=== PATIENT | male | born 1980 | race Caucasian/White ===

== ENCOUNTER → 2019-07-05 | Outpatient (REF) | payer OTHER | LOC: M LAB REF 13:09 | PROVIDERS: ATTEND Physician Assistant | DX: J02.9 Acute pharyngitis, unspecified (principal) ==

== ENCOUNTER → 2019-09-26 | Outpatient (CLI) | payer OTHER ==
[2019-09-26 17:54] LABS: BASO % 0.7 % (0.0-1.0); EOS # 0.2 10^3/uL (0.0-0.5); EOS % 3.2 % (0.0-3.0); HEMATOCRIT 45.5 % (42.0-52.0); HEMOGLOBIN 15.1 g/dl (13.5-17.5); LYMPH % 35.3 % (24.0-44.0); MEAN CORPUSCULAR HEMOGLOBIN 29.4 pg (27.0-33.0); MEAN CORPUSCULAR HGB CONC 33.2 g/dl (32.0-36.5); MEAN CORPUSCULAR VOLUME 88.5 fl (80.0-96.0); MONO # 0.4 10^3/uL (0.0-0.8); MONO % 7.4 % (0.0-5.0); NEUTROPHILS % 53.2 % (36.0-66.0); PLATELET COUNT, AUTOMATED 289 10^3/uL (150-450); RED BLOOD COUNT 5.14 10^6/uL (4.30-6.10); WHITE BLOOD COUNT 5.6 10^3/uL (4.0-10.0)
[2019-09-26 18:36] LABS: ALBUMIN 4.1 GM/DL (3.2-5.2); ALT/SGPT 37 U/L (12-78); BILIRUBIN,TOTAL 0.6 MG/DL (0.2-1.0); BLOOD UREA NITROGEN 17 MG/DL (7-18); CALCIUM LEVEL 8.8 MG/DL (8.5-10.1); CARBON DIOXIDE LEVEL 31 MEQ/L (21-32); CHLORIDE LEVEL 108 MEQ/L (98-107); CHOLESTEROL LEVEL 157 MG/DL (<200); CHOLESTEROL RISK RATIO 3.204 (<5); CREATININE FOR GFR 1.11 MG/DL (0.70-1.30); GLOMERULAR FILTRATION RATE > 60.0 (>60); GLUCOSE, FASTING 97 MG/DL (70-100); HDL CHOLESTEROL 49 MG/DL (>40); LDL CHOLESTEROL 100 MG/DL (<100); NON-HDL-C 108 MG/DL; POTASSIUM SERUM 4.5 MEQ/L (3.5-5.1); SODIUM LEVEL 142 MEQ/L (136-145); TOTAL PROTEIN 7.1 GM/DL (6.4-8.2); TRIGLYCERIDES LEVEL 38 MG/DL (<150)
== END ==
LOC: M LRY 11:59
PROVIDERS: ATTEND Family Medicine
DX: Z00.00 Encounter for general adult medical examination without abnormal findings (principal)

== ENCOUNTER 2023-08-18 16:10 | Inpatient (IN) | payer OTHER ==
[~2023-08-18] VITALS: Ht 180.3 cm; Wt 96.0 kg
[2023-08-18] MEDS ORDERED: ONDANSETRON 4MG 2ML VIAL IV ONE (16:25)
[2023-08-18] MEDS: MORPHINE 4 MG/ML 1ML VIAL IV PRN ×4 (16:32→23:18)
[2023-08-18 16:57] LABS: BASO % 0.3 % (0.0-1.0); EOS # 0.2 10^3/uL (0.0-0.5); EOS % 2.1 % (0.0-3.0); HEMATOCRIT 40.7 % (42.0-52.0); HEMOGLOBIN 13.3 g/dl (13.5-17.5); LYMPH # 2.5 10^3/uL (1.5-5.0); LYMPH % 26.1 % (24.0-44.0); MEAN CORPUSCULAR HEMOGLOBIN 28.9 pg (27.0-33.0); MEAN CORPUSCULAR HGB CONC 32.7 g/dl (32.0-36.5); MEAN CORPUSCULAR VOLUME 88.3 fl (80.0-96.0); MONO # 0.6 10^3/uL (0.0-0.8); MONO % 6.4 % (2.0-8.0); NEUTROPHILS # 6.2 10^3/uL (1.5-8.5); NEUTROPHILS % 64.6 % (36.0-66.0); PLATELET COUNT, AUTOMATED 310 10^3/uL (150-450); RED BLOOD COUNT 4.61 10^6/uL (4.30-6.10); WHITE BLOOD COUNT 9.6 10^3/uL (4.0-10.0)
[2023-08-18] MEDS ORDERED: MED REC IN PROGRESS XX SCH (18:05)
[2023-08-18] MEDS ORDERED: HOME MED LIST COMPLETE! XX SCH (18:10)
[2023-08-18] MEDS: KETOROLAC 30 MG/ML 1ML VIAL IV SCH (19:28)
[2023-08-18] MEDS: PERCOCET 5MG/325MG TAB PO PRN (19:28)
[2023-08-18] MEDS: DOCUSATE SODIUM 100MG CAPSULE PO SCH (21:00)
[2023-08-18 22:21] LABS: BASO % 0.2 % (0.0-1.0); EOS % 0.1 % (0.0-3.0); HEMATOCRIT 36.2 % (42.0-52.0); HEMOGLOBIN 12.4 g/dl (13.5-17.5); MEAN CORPUSCULAR HEMOGLOBIN 29.7 pg (27.0-33.0); MEAN CORPUSCULAR HGB CONC 34.3 g/dl (32.0-36.5); MEAN CORPUSCULAR VOLUME 86.6 fl (80.0-96.0); MONO # 1.1 10^3/uL (0.0-0.8); MONO % 7.5 % (2.0-8.0); NEUTROPHILS # 12.4 10^3/uL (1.5-8.5); NEUTROPHILS % 84.9 % (36.0-66.0); PLATELET COUNT, AUTOMATED 286 10^3/uL (150-450); RED BLOOD COUNT 4.18 10^6/uL (4.30-6.10); WHITE BLOOD COUNT 14.6 10^3/uL (4.0-10.0)
[2023-08-18 22:38] LABS: INR 1.2; PROTHROMBIN TIME 14.8 SECONDS (12.5-14.5)
[2023-08-18 22:39] LABS: PARTIAL THROMBOPLASTIN TIME 24.9 SECONDS (24.8-34.2)
[2023-08-18 22:47] LABS: ALBUMIN 3.7 G/DL (3.2-5.2); ALKALINE PHOSPHATASE 37 U/L (46-116); ALT/SGPT 22 U/L (7.0-40); AST/SGOT 22 U/L (<34); BILIRUBIN,TOTAL 0.8 MG/DL (0.3-1.2); BLOOD UREA NITROGEN 20 MG/DL (9-23); CALCIUM LEVEL 8.6 MG/DL (8.5-10.1); CARBON DIOXIDE LEVEL 29 MMOL/L (20-31); CHLORIDE LEVEL 103 MMOL/L (98-107); GLOMERULAR FILTRATION RATE > 60.0 (>60); GLUCOSE, FASTING 137 MG/DL (60-100); POTASSIUM SERUM 4.2 MMOL/L (3.5-5.1); SODIUM LEVEL 139 MMOL/L (136-145); TOTAL PROTEIN 6.1 G/DL (5.7-8.2)
[2023-08-18] MEDS: PANTOPRAZOLE 40MG TAB (PROTONIX) PO SCH (23:17)
[2023-08-19] VITALS (8 sets, daily range): BP systolic 101–131; BP diastolic 61–80; TEMP 98.1–98.6; O2SAT 79–98
[2023-08-19] MEDS: ONDANSETRON 4MG 2ML VIAL IV PRN ×3 (00:14→19:55)
[2023-08-19] MEDS: KETOROLAC 30 MG/ML 1ML VIAL IV SCH ×4 (01:00→19:55)
[2023-08-19] MEDS: MORPHINE 4 MG/ML 1ML VIAL IV PRN ×3 (04:43→12:05)
[2023-08-19] MEDS: D5W/0.9% SODIUM CHLORIDE 1,000 ML IV SCH ×3 (04:43→19:06)
[2023-08-19 06:17] LABS: HEMATOCRIT 36.1 % (42.0-52.0); MEAN CORPUSCULAR HEMOGLOBIN 29.3 pg (27.0-33.0); MEAN CORPUSCULAR HGB CONC 33.2 g/dl (32.0-36.5); PLATELET COUNT, AUTOMATED 270 10^3/uL (150-450); WHITE BLOOD COUNT 9.9 10^3/uL (4.0-10.0)
[2023-08-19 06:40] LABS: BLOOD UREA NITROGEN 22 MG/DL (9-23); CALCIUM LEVEL 8.6 MG/DL (8.5-10.1); CARBON DIOXIDE LEVEL 27 MMOL/L (20-31); CHLORIDE LEVEL 104 MMOL/L (98-107); CREATININE FOR GFR 1.11 MG/DL (0.70-1.30); GLOMERULAR FILTRATION RATE > 60.0 (>60); GLUCOSE, FASTING 117 MG/DL (60-100); POTASSIUM SERUM 4.4 MMOL/L (3.5-5.1); SODIUM LEVEL 139 MMOL/L (136-145)
[2023-08-19] MEDS: DOCUSATE SODIUM 100MG CAPSULE PO SCH ×2 (08:10→19:54)
[2023-08-19] MEDS ORDERED: ONDANSETRON 4MG 2ML VIAL As Ordered ONE ×2 (13:06→14:35)
[2023-08-19] MEDS ORDERED: ROCURONIUM BROMIDE 50MG/5ML VIAL As Ordered ONE ×2 (13:07→15:17)
[2023-08-19] MEDS ORDERED: LIDOCAINE 2% 100MG/5ML SDV (FOR ANES.) As Ordered ONE ×2 (13:07→14:33)
[2023-08-19] MEDS ORDERED: propofoL 200 MG/20 ML VIAL As Ordered ONE ×2 (13:07→14:33)
[2023-08-19] MEDS ORDERED: SUGAMMADEX SODIUM 500 MG/5 ML VIAL (BRIDION) As Ordered ONE ×2 (13:07→17:02)
[2023-08-19] MEDS ORDERED: MIDAZOLAM INJ 2MG/2ML VIAL As Ordered ONE (14:32)
[2023-08-19] MEDS ORDERED: fentaNYL 100 MCG/2 ML INJECTION As Ordered ONE (14:33)
[2023-08-19] MEDS ORDERED: ceFAZolin 2 GM/D5W 50 ML IV BAG As Ordered ONE (15:36)
[2023-08-19] MEDS ORDERED: ACETAMINOPHEN 1000MG 100ML IV BAG As Ordered ONE (16:35)
[2023-08-19] MEDS ORDERED: ONDANSETRON 4MG 2ML VIAL IV PRN (17:15)
[2023-08-19] MEDS ORDERED: fentaNYL 100 MCG/2 ML INJECTION IV PRN (17:15)
[2023-08-19] MEDS ORDERED: oxyCODONE 5MG TAB PO PRN (17:15)
[2023-08-19] MEDS: MORPHINE 2 MG/ML 1ML VIAL IV PRN ×4 (17:43→18:15)
[2023-08-19] MEDS ORDERED: METOCLOPRAMIDE INJ 10MG/2ML VIAL IV STA (18:09)
[2023-08-19] MEDS: PANTOPRAZOLE 40MG TAB (PROTONIX) PO SCH (19:54)
[2023-08-19] MEDS: ceFAZolin SOD 2 GM in IV 1 EA IV SCH (23:42)
[2023-08-19] MEDS: PERCOCET 5MG/325MG TAB PO PRN (23:48)
[2023-08-20] MEDS: KETOROLAC 30 MG/ML 1ML VIAL IV SCH ×4 (03:49→20:50)
[2023-08-20 05:47] VITALS: BP 109/60; TEMP 98.6; O2SAT 94
[2023-08-20] MEDS: PERCOCET 5MG/325MG TAB PO PRN ×3 (07:48→20:51)
[2023-08-20] MEDS: ceFAZolin SOD 2 GM in IV 1 EA IV SCH ×2 (07:49→15:16)
[2023-08-20] MEDS: D5W/0.9% SODIUM CHLORIDE 1,000 ML IV SCH (07:49)
[2023-08-20] MEDS: DOCUSATE SODIUM 100MG CAPSULE PO SCH ×2 (07:49→20:52)
[2023-08-20 08:22] LABS: BASO % 0.1 % (0.0-1.0); EOS # 0.1 10^3/uL (0.0-0.5); EOS % 0.8 % (0.0-3.0); HEMATOCRIT 25.9 % (42.0-52.0); LYMPH # 1.6 10^3/uL (1.5-5.0); LYMPH % 16.6 % (24.0-44.0); MEAN CORPUSCULAR HGB CONC 32.4 g/dl (32.0-36.5); MEAN CORPUSCULAR VOLUME 89.3 fl (80.0-96.0); MONO # 0.9 10^3/uL (0.0-0.8); MONO % 9.3 % (2.0-8.0); NEUTROPHILS % 72.9 % (36.0-66.0); PLATELET COUNT, AUTOMATED 211 10^3/uL (150-450); WHITE BLOOD COUNT 9.6 10^3/uL (4.0-10.0)
[2023-08-20 08:24] LABS: HEMOGLOBIN 8.4 g/dl (13.5-17.5)
[2023-08-20 08:39] LABS: BLOOD UREA NITROGEN 15 MG/DL (9-23); CARBON DIOXIDE LEVEL 27 MMOL/L (20-31); CHLORIDE LEVEL 108 MMOL/L (98-107); CREATININE FOR GFR 1.17 MG/DL (0.70-1.30); GLOMERULAR FILTRATION RATE > 60.0 (>60); GLUCOSE, FASTING 114 MG/DL (60-100); POTASSIUM SERUM 4.1 MMOL/L (3.5-5.1); SODIUM LEVEL 140 MMOL/L (136-145)
[2023-08-20] MEDS: ASPIRIN 81MG ENTERIC TABLET PO SCH ×2 (09:52→20:51)
[2023-08-20 09:58] VITALS: BP 111/56; TEMP 97.2; O2SAT 92
[2023-08-20 14:25] VITALS: BP 121/62; TEMP 97.2; O2SAT 96
[2023-08-20] MEDS: PANTOPRAZOLE 40MG TAB (PROTONIX) PO SCH (20:51)
[2023-08-20 20:52] VITALS: BP 120/63; TEMP 98.8; O2SAT 97
[2023-08-20] MEDS ORDERED: SENNA 8.6 MG TAB (SENOKOT) PO SCH (21:00)
[2023-08-21] MEDS: KETOROLAC 30 MG/ML 1ML VIAL IV SCH ×2 (02:23→08:35)
[2023-08-21] MEDS: PERCOCET 5MG/325MG TAB PO PRN ×2 (02:24→08:36)
[2023-08-21] MEDS ORDERED: ACETAMINOPHEN TAB 650MG DOSE (2X325MG) PO PRN (05:50)
[2023-08-21 06:00] VITALS: BP 116/52; TEMP 100.2; O2SAT 96
[2023-08-21 06:20] VITALS: TEMP 99.1
[2023-08-21] MEDS ORDERED: ASPI81TAEC PO (08:15)
[2023-08-21] MEDS ORDERED: FERR325T3 PO (08:15)
[2023-08-21] MEDS ORDERED: VITA500C24 PO (08:15)
[2023-08-21] MEDS ORDERED: SENN-186 PO (08:15)
[2023-08-21] MEDS ORDERED: PERCOCET PO (08:15)
[2023-08-21] MEDS ORDERED: COLA100C5 PO (08:15)
[2023-08-21] MEDS: DOCUSATE SODIUM 100MG CAPSULE PO SCH (08:36)
[2023-08-21] MEDS: ASPIRIN 81MG ENTERIC TABLET PO SCH (08:36)
== END 2023-08-21 12:20 | disposition home or self-care (01) | DRG 308 ==
LOC: EDBD 16:10 → M ED 16:10 → M ED INP 17:33 → ENRESERV 22:49 → M MS5PR 08-19
PROVIDERS: ADMIT Internal Medicine Nephrology; ATTEND Internal Medicine Nephrology
PROC: 0QS736Z Reposition Left Upper Femur with Intramedullary Internal Fixation Device, Percutaneous Approach (ICD-10-PCS; principal; 2023-08-19 16:00)
DX: S72.22XA Displaced subtrochanteric fracture of left femur, initial encounter for closed fracture (principal); R33.9 Retention of urine, unspecified; W31.89XA Contact with other specified machinery, initial encounter; Y92.89 Other specified places as the place of occurrence of the external cause; Y99.0 Civilian activity done for income or pay; Y93.89 Activity, other specified

== ENCOUNTER → 2023-09-01 | Outpatient (CLI) | payer OTHER ==
[~2023-09-01] MED LIST: ASPI81TAEC PO; COLA100C5 PO; FERR325T3 PO; PERCOCET PO; SENN-186 PO; VITA500C24 PO
== END ==
LOC: M SOG 08:28
PROVIDERS: ATTEND Physician Assistant
DX: S72.22XA Displaced subtrochanteric fracture of left femur, initial encounter for closed fracture (principal); Y93.9 Activity, unspecified; Y92.9 Unspecified place or not applicable

== ENCOUNTER → 2023-09-28 | Outpatient (CLI) | payer OTHER | LOC: M SOG 08:03 | PROVIDERS: ATTEND Orthopaedic Surgery | DX: S72.22XD Displaced subtrochanteric fracture of left femur, subsequent encounter for closed fracture with routine healing (principal) ==

== ENCOUNTER → 2023-11-09 | Outpatient (CLI) | payer OTHER | LOC: M SOG 07:58 | PROVIDERS: ATTEND Orthopaedic Surgery | DX: S72.22XA Displaced subtrochanteric fracture of left femur, initial encounter for closed fracture (principal); Y93.9 Activity, unspecified; Y92.9 Unspecified place or not applicable ==

== ENCOUNTER → 2023-12-19 | Outpatient (CLI) | payer OTHER | LOC: M SOG 08:04 | PROVIDERS: ATTEND Orthopaedic Surgery | DX: S72.22XD Displaced subtrochanteric fracture of left femur, subsequent encounter for closed fracture with routine healing (principal) ==

== ENCOUNTER → 2024-02-08 | Outpatient (CLI) | payer OTHER | LOC: M SOG 07:59 | PROVIDERS: ATTEND Orthopaedic Surgery | DX: S72.22XD Displaced subtrochanteric fracture of left femur, subsequent encounter for closed fracture with routine healing (principal) ==

== ENCOUNTER → 2024-03-16 | Outpatient (CLI) | payer OTHER | LOC: M SOG 12:51 | PROVIDERS: ATTEND Orthopaedic Surgery | DX: S72.22XA Displaced subtrochanteric fracture of left femur, initial encounter for closed fracture (principal); Y93.9 Activity, unspecified; Y92.9 Unspecified place or not applicable ==

== ENCOUNTER → 2024-04-25 | Outpatient (CLI) | payer OTHER | LOC: M SOG 07:49 | PROVIDERS: ATTEND Physician Assistant | DX: S72.22XD Displaced subtrochanteric fracture of left femur, subsequent encounter for closed fracture with routine healing (principal); Y93.9 Activity, unspecified; Y92.9 Unspecified place or not applicable ==

== ENCOUNTER 2024-05-03 09:43 | Observation (INO) | payer OTHER ==
[~2024-05-03] VITALS: Ht 180.3 cm; Wt 95.7 kg
[~2024-05-03 09:43] MED LIST changes: +CALCTAB89 PO; +D32000CA PO; +IBUP-1022 PO
[2024-05-03] MEDS: LR 1,000 ML IV SCH ×2 (10:25→17:40)
[2024-05-03 11:23] LABS: HEMATOCRIT 42.8 % (42.0-52.0); HEMOGLOBIN 14.5 g/dl (13.5-17.5); MEAN CORPUSCULAR HEMOGLOBIN 29.7 pg (27.0-33.0); MEAN CORPUSCULAR HGB CONC 33.9 g/dl (32.0-36.5); MEAN CORPUSCULAR VOLUME 87.7 fl (80.0-96.0); PLATELET COUNT, AUTOMATED 281 10^3/uL (150-450); RED BLOOD COUNT 4.88 10^6/uL (4.30-6.10); WHITE BLOOD COUNT 7.9 10^3/uL (4.0-10.0)
[2024-05-03 11:55] LABS: ERYTHROCYTE SEDIMENTATION RATE 9 mm/hr (0-15)
[2024-05-03] MEDS ORDERED: MIDAZOLAM INJ 2MG/2ML VIAL As Ordered ONE (13:09)
[2024-05-03] MEDS ORDERED: fentaNYL 100 MCG/2 ML INJECTION As Ordered ONE (13:10)
[2024-05-03] MEDS ORDERED: SUGAMMADEX SODIUM 500 MG/5 ML VIAL (BRIDION) As Ordered ONE (13:12)
[2024-05-03] MEDS ORDERED: propofoL 200 MG/20 ML VIAL As Ordered ONE (13:12)
[2024-05-03] MEDS ORDERED: KETOROLAC 60MG 2ML VIAL As Ordered ONE (13:12)
[2024-05-03] MEDS ORDERED: ROCURONIUM BROMIDE 50MG/5ML VIAL As Ordered ONE (13:12)
[2024-05-03] MEDS ORDERED: ONDANSETRON 4MG 2ML VIAL As Ordered ONE (13:12)
[2024-05-03] MEDS ORDERED: LIDOCAINE 2% 100MG/5ML SDV (FOR ANES.) As Ordered ONE (13:36)
[2024-05-03] MEDS ORDERED: ACETAMINOPHEN 1000MG 100ML IV BAG As Ordered ONE (14:26)
[2024-05-03] MEDS ORDERED: HYDROmorphone HCL 2MG/ML 1ML VIAL As Ordered ONE (14:34)
[2024-05-03] MEDS: ceFAZolin 2 GM/D5W 50 ML IV BAG As Ordered ONE (14:44)
[2024-05-03] MEDS ORDERED: oxyCODONE 5MG TAB PO PRN (17:40)
[2024-05-03] MEDS ORDERED: fentaNYL 100 MCG/2 ML INJECTION IV PRN (17:40)
[2024-05-03] MEDS ORDERED: ONDANSETRON 4MG 2ML VIAL IV PRN (17:40)
[2024-05-03] MEDS ORDERED: ACETAMINOPHEN TAB 650MG DOSE (2X325MG) PO PRN (18:10)
[2024-05-03] MEDS ORDERED: MORPHINE 2 MG/ML 1ML VIAL IV PRN (18:10)
[2024-05-03] MEDS: HYDROMORPHONE HCL 0.5 MG/ 0.5 ML SYRINGE IV PRN (18:37)
[2024-05-03 19:20] LABS: HEMATOCRIT 36.5 % (42.0-52.0)
[2024-05-03 19:21] LABS: HEMOGLOBIN 12.1 g/dl (13.5-17.5)
[2024-05-03] MEDS: oxyCODONE 5MG TAB PO PRN (20:31)
[2024-05-03 21:12] VITALS: BP 94/65; TEMP 97.5; O2SAT 97
[2024-05-03 21:30] VITALS: BP 111/88; TEMP 97.6; O2SAT 96
[2024-05-03] MEDS: ONDANSETRON 4MG 2ML VIAL IV PRN (21:40)
[2024-05-03] MEDS: ceFAZolin SOD 2 GM in IV 1 EA IV SCH (21:41)
[2024-05-03] MEDS: SENOKOT S TAB PO SCH (21:44)
[2024-05-03 22:39] VITALS: BP 110/74; TEMP 97.2; O2SAT 92
[2024-05-03 23:39] VITALS: BP 108/75; TEMP 97.2; O2SAT 90
[2024-05-04] VITALS (7 sets, daily range): BP systolic 100–112; BP diastolic 63–72; TEMP 97–98.4; O2SAT 90–95
[2024-05-04] MEDS: METOCLOPRAMIDE INJ 10MG/2ML VIAL IV PRN (00:45)
[2024-05-04] MEDS: oxyCODONE 5MG TAB PO PRN ×2 (00:46→23:50)
[2024-05-04] MEDS ORDERED: IBUP200C25 PO (01:18)
[2024-05-04] MEDS ORDERED: CALC-190 PO (01:18)
[2024-05-04] MEDS ORDERED: HOME MED LIST COMPLETE! XX SCH (01:20)
[2024-05-04 06:34] LABS: BASO % 0.1 % (0.0-1.0); HEMATOCRIT 31.4 % (42.0-52.0); HEMOGLOBIN 10.5 g/dl (13.5-17.5); LYMPH % 7.1 % (24.0-44.0); MEAN CORPUSCULAR HEMOGLOBIN 29.7 pg (27.0-33.0); MEAN CORPUSCULAR HGB CONC 33.4 g/dl (32.0-36.5); MEAN CORPUSCULAR VOLUME 88.7 fl (80.0-96.0); MONO # 1.2 10^3/uL (0.0-0.8); NEUTROPHILS # 12.1 10^3/uL (1.5-8.5); NEUTROPHILS % 84.5 % (36.0-66.0); PLATELET COUNT, AUTOMATED 259 10^3/uL (150-450); RED BLOOD COUNT 3.54 10^6/uL (4.30-6.10); WHITE BLOOD COUNT 14.3 10^3/uL (4.0-10.0)
[2024-05-04 07:05] LABS: BLOOD UREA NITROGEN 22 MG/DL (9-23); CALCIUM LEVEL 7.8 MG/DL (8.5-10.1); CARBON DIOXIDE LEVEL 28 MMOL/L (20-31); CHLORIDE LEVEL 103 MMOL/L (98-107); CREATININE FOR GFR 1.22 MG/DL (0.70-1.30); GLOMERULAR FILTRATION RATE > 60.0 (>60); GLUCOSE, FASTING 149 MG/DL (60-100); POTASSIUM SERUM 4.7 MMOL/L (3.5-5.1); SODIUM LEVEL 136 MMOL/L (136-145)
[2024-05-04] MEDS ORDERED: ASPI-255 PO (15:04)
[2024-05-04] MEDS ORDERED: OXYC1TAB23 PO (15:04)
[2024-05-04] MEDS: ENOXAPARIN 40MG/0.4ML SYRINGE (J1650 PER 10MG) SC SCH (17:42)
[2024-05-05] VITALS (12 sets, daily range): BP systolic 108–122; BP diastolic 58–74; TEMP 97.3–98.2; O2SAT 94–97
[2024-05-05 06:38] LABS: HEMATOCRIT 25.5 % (42.0-52.0); MEAN CORPUSCULAR HEMOGLOBIN 29.6 pg (27.0-33.0); MEAN CORPUSCULAR HGB CONC 33.3 g/dl (32.0-36.5); MEAN CORPUSCULAR VOLUME 88.9 fl (80.0-96.0); PLATELET COUNT, AUTOMATED 214 10^3/uL (150-450); RED BLOOD COUNT 2.87 10^6/uL (4.30-6.10)
[2024-05-05 06:40] LABS: HEMOGLOBIN 8.5 g/dl (13.5-17.5)
[2024-05-05 13:03] LABS: FERRITIN 133.6 NG/ML (10.5-307.3)
[2024-05-05 13:04] LABS: FOLATE 9.87 NG/ML (>5.4)
[2024-05-05] MEDS ORDERED: ISOVUE-370 76% 100ML VIAL As Ordered ONE (14:47)
[2024-05-05 22:42] LABS: HEMOGLOBIN 10.2 g/dl (13.5-17.5); MEAN CORPUSCULAR HEMOGLOBIN 29.8 pg (27.0-33.0); MEAN CORPUSCULAR VOLUME 87.7 fl (80.0-96.0); PLATELET COUNT, AUTOMATED 225 10^3/uL (150-450); RED BLOOD COUNT 3.42 10^6/uL (4.30-6.10); WHITE BLOOD COUNT 9.5 10^3/uL (4.0-10.0)
[2024-05-06] VITALS: BP 112/65; TEMP 98.1; O2SAT 94
[2024-05-06 04:00] VITALS: BP 105/69; TEMP 97.7; O2SAT 95
[2024-05-06 06:07] LABS: HEMATOCRIT 30.6 % (42.0-52.0); HEMOGLOBIN 10.2 g/dl (13.5-17.5); MEAN CORPUSCULAR HEMOGLOBIN 29.8 pg (27.0-33.0); MEAN CORPUSCULAR HGB CONC 33.3 g/dl (32.0-36.5); MEAN CORPUSCULAR VOLUME 89.5 fl (80.0-96.0); PLATELET COUNT, AUTOMATED 218 10^3/uL (150-450); RED BLOOD COUNT 3.42 10^6/uL (4.30-6.10); WHITE BLOOD COUNT 9.3 10^3/uL (4.0-10.0)
[2024-05-06 06:31] LABS: BLOOD UREA NITROGEN 12 MG/DL (9-23); CALCIUM LEVEL 7.9 MG/DL (8.5-10.1); CARBON DIOXIDE LEVEL 33 MMOL/L (20-31); CHLORIDE LEVEL 104 MMOL/L (98-107); CREATININE FOR GFR 1.07 MG/DL (0.70-1.30); GLOMERULAR FILTRATION RATE > 60.0 (>60); GLUCOSE, FASTING 106 MG/DL (60-100); POTASSIUM SERUM 4.4 MMOL/L (3.5-5.1); SODIUM LEVEL 138 MMOL/L (136-145)
[2024-05-06 08:00] VITALS: BP 109/64; TEMP 97.9; O2SAT 78
[2024-05-06] MEDS: DOCUSATE SODIUM 100MG CAPSULE PO SCH (09:39)
[2024-05-06] MEDS: PANTOPRAZOLE 20 MG TAB PO SCH (09:39)
[2024-05-06] MEDS: FERROUS SULFATE 325MG TAB PO SCH (09:40)
[2024-05-06] MEDS: IRON SUCROSE 200 MG in NS 100 ML IV SCH (10:28)
[2024-05-06] MEDS: MIRALAX *UNIT DOSE* 17GM PACKET PO PRN (10:28)
[2024-05-06 12:00] VITALS: BP 112/63; TEMP 97.9; O2SAT 96
[2024-05-06 20:49] VITALS: BP 121/90; TEMP 97.9; O2SAT 91
[2024-05-06] MEDS: SENNA 8.6 MG TAB (SENOKOT) PO SCH (20:57)
[2024-05-06 23:33] VITALS: BP 111/56; TEMP 97.4; O2SAT 92
[2024-05-07 04:47] VITALS: BP 111/57; TEMP 98.4; O2SAT 95
[2024-05-07 06:54] LABS: HEMOGLOBIN 10.7 g/dl (13.5-17.5); MEAN CORPUSCULAR HEMOGLOBIN 29.7 pg (27.0-33.0); MEAN CORPUSCULAR HGB CONC 33.4 g/dl (32.0-36.5); MEAN CORPUSCULAR VOLUME 88.9 fl (80.0-96.0); PLATELET COUNT, AUTOMATED 279 10^3/uL (150-450)
[2024-05-07 07:17] LABS: ALBUMIN 2.7 G/DL (3.2-5.2); ALKALINE PHOSPHATASE 52 U/L (46-116); ALT/SGPT 34 U/L (7.0-40); AST/SGOT 59 U/L (<34); BILIRUBIN,TOTAL 0.6 MG/DL (0.3-1.2); BLOOD UREA NITROGEN 12 MG/DL (9-23); CALCIUM LEVEL 8.3 MG/DL (8.5-10.1); CARBON DIOXIDE LEVEL 32 MMOL/L (20-31); CHLORIDE LEVEL 102 MMOL/L (98-107); CREATININE FOR GFR 1.07 MG/DL (0.70-1.30); GLOMERULAR FILTRATION RATE > 60.0 (>60); GLUCOSE, FASTING 101 MG/DL (60-100); SODIUM LEVEL 138 MMOL/L (136-145); TOTAL PROTEIN 5.5 G/DL (5.7-8.2)
[2024-05-07 08:00] VITALS: BP 107/65; TEMP 97.5; O2SAT 97
[2024-05-07 12:00] VITALS: BP 106/55; TEMP 97.9; O2SAT 95
[2024-05-07 12:51] VITALS: O2SAT 95
[2024-05-07] MEDS ORDERED: COLA100C5 PO (13:22)
[2024-05-07] MEDS ORDERED: SENO8.6T5 PO (13:22)
[2024-05-07] MEDS ORDERED: PANT20TA51 PO (13:22)
[2024-05-07] MEDS ORDERED: MIRA33506 PO (13:22)
[2024-05-07] MEDS ORDERED: FERR1TAB8 PO (13:22)
== END 2024-05-07 15:15 | disposition home or self-care (01) ==
LOC: M SDC 09:43 → M MS5PR 21:10 → INTOOBSV 21:10
PROVIDERS: ADMIT Orthopaedic Surgery; ATTEND Orthopaedic Surgery
DX: S72.145K Nondisplaced intertrochanteric fracture of left femur, subsequent encounter for closed fracture with nonunion (principal); X58.XXXD Exposure to other specified factors, subsequent encounter; M96.840 Postprocedural hematoma of a musculoskeletal structure following a musculoskeletal system procedure; D62 Acute posthemorrhagic anemia; D50.9 Iron deficiency anemia, unspecified; R42 Dizziness and giddiness; Z79.899 Other long term (current) drug therapy; Z79.82 Long term (current) use of aspirin
CPT/HCPCS: 20680; 20902; 27299; 36415; 73706; 76000; 80048; 80053; 82607; 82728; 82746; 83550; 85014; 85018; 85025; 85027; 85652; 86140; 86850; 86900; 86901; 86920; 87070; 87075; 88305; 96372; 96374; 96375; 96376; 97161; 97165; 97530; 97535; A4649; C1713; C1762; J0131; J0690; J1100; J1170; J1650; J1756; J1885; J2250; J2405; J2765; J3010; P9016; Q9967

== ENCOUNTER → 2024-05-15 | Outpatient (CLI) | payer OTHER ==
[~2024-05-15] MED LIST changes: +ASPI-255 PO; +CALC-190 PO; +FERR1TAB8 PO; +IBUP200C25 PO; +MIRA33506 PO; +OXYC1TAB23 PO; +PANT20TA51 PO; +SENO8.6T5 PO
== END ==
LOC: M SOG 07:22
PROVIDERS: ATTEND Physician Assistant
DX: S72.142K Displaced intertrochanteric fracture of left femur, subsequent encounter for closed fracture with nonunion (principal)

== ENCOUNTER → 2024-05-16 | Outpatient (CLI) | payer OTHER ==
[2024-05-16 07:52] LABS: BASO # 0.1 10^3/uL (0.0-0.2); BASO % 0.6 % (0.0-1.0); EOS # 0.3 10^3/uL (0.0-0.5); EOS % 3.3 % (0.0-3.0); HEMATOCRIT 34.5 % (42.0-52.0); HEMOGLOBIN 11.3 g/dl (13.5-17.5); LYMPH # 2.5 10^3/uL (1.5-5.0); LYMPH % 28.6 % (24.0-44.0); MEAN CORPUSCULAR HEMOGLOBIN 29.5 pg (27.0-33.0); MEAN CORPUSCULAR HGB CONC 32.8 g/dl (32.0-36.5); MEAN CORPUSCULAR VOLUME 90.1 fl (80.0-96.0); MONO # 0.6 10^3/uL (0.0-0.8); MONO % 7.2 % (2.0-8.0); NEUTROPHILS # 5.1 10^3/uL (1.5-8.5); NEUTROPHILS % 59.7 % (36.0-66.0); PLATELET COUNT, AUTOMATED 525 10^3/uL (150-450); RED BLOOD COUNT 3.83 10^6/uL (4.30-6.10); WHITE BLOOD COUNT 8.6 10^3/uL (4.0-10.0)
== END ==
LOC: M LAB 06:49
PROVIDERS: ATTEND Physician Assistant
DX: S72.142K Displaced intertrochanteric fracture of left femur, subsequent encounter for closed fracture with nonunion (principal); Y93.9 Activity, unspecified; Y92.9 Unspecified place or not applicable

== ENCOUNTER → 2024-05-25 | Outpatient (CLI) | payer OTHER | LOC: M SOG 09:59 | PROVIDERS: ATTEND Orthopaedic Surgery | DX: S72.142D Displaced intertrochanteric fracture of left femur, subsequent encounter for closed fracture with routine healing (principal); Y93.9 Activity, unspecified; Y92.9 Unspecified place or not applicable ==

== ENCOUNTER → 2024-06-20 | Outpatient (CLI) | payer OTHER | LOC: M SOG 07:23 | PROVIDERS: ATTEND Physician Assistant | DX: S72.142D Displaced intertrochanteric fracture of left femur, subsequent encounter for closed fracture with routine healing (principal); Y93.9 Activity, unspecified; Y92.9 Unspecified place or not applicable ==

== ENCOUNTER → 2024-08-08 | Outpatient (CLI) | payer OTHER | LOC: M SOG 07:59 | PROVIDERS: ATTEND Physician Assistant | DX: S72.142D Displaced intertrochanteric fracture of left femur, subsequent encounter for closed fracture with routine healing (principal) ==

== ENCOUNTER → 2024-10-10 | Outpatient (CLI) | payer OTHER | LOC: M SOG 07:51 | PROVIDERS: ATTEND Physician Assistant | DX: S72.142D Displaced intertrochanteric fracture of left femur, subsequent encounter for closed fracture with routine healing (principal) ==

== ENCOUNTER → 2025-06-26 | Outpatient (CLI) | payer OTHER ==
[~2025-06-26] MED LIST changes: -IBUP-1022 PO; +IBUP600T42 PO; +SENN-225 PO; -SENO8.6T5 PO
== END ==
LOC: M SOG 07:20
PROVIDERS: ATTEND Physician Assistant
DX: M79.605 Pain in left leg (principal)